=== PATIENT | male | born 1960 | race Caucasian/White ===

== ENCOUNTER → 2018-09-30 | Outpatient (REF) | payer OTHER ==
[2018-09-30 19:15] LABS: APPEARANCE, URINE HAZY (CLEAR); BACTERIA, URINE AUTO NEGATIVE (NEGATIVE); BILIRUBIN, URINE AUTO NEGATIVE (NEGATIVE); BLOOD, URINE BLOOD NEGATIVE (NEGATIVE); CALCIUM OXALATE CRYSTALS SMALL; COLOR, URINE YELLOW (YELLOW); GLUCOSE, URINE (UA) AUTO NEGATIVE (NEGATIVE); KETONE, URINE AUTO TRACE mg/dL (NEGATIVE); LEUKOCYTE ESTERASE, URINE AUTO NEGATIVE (NEGATIVE); MUCUS, URINE SMALL (NEGATIVE); NITRITE, URINE AUTO NEGATIVE (NEGATIVE); PROTEIN, URINE AUTO 1+ mg/dL (NEGATIVE); RBC, URINE AUTO 2 /HPF (0-3); SPECIFIC GRAVITY URINE AUTO 1.027 (1.002-1.035); SQUAMOUS EPITHELIAL CELL UR AU 0 /HPF (0-6); WBC, URINE AUTO 4 /HPF (0-3)
== END ==
LOC: M SMT 17:26
DX: L02.215 Cutaneous abscess of perineum (principal)

== ENCOUNTER → 2018-10-04 | Outpatient (CLI) | payer OTHER ==
[2018-10-04 18:11] LABS: PSA SCREENING 1.5 NG/ML (< 4.0)
== END ==
LOC: M RAD 14:41
DX: L02.215 Cutaneous abscess of perineum (principal); Z12.5 Encounter for screening for malignant neoplasm of prostate
CPT/HCPCS: 76870

== ENCOUNTER 2020-12-03 16:19 | Emergency (ER) | payer OTHER ==
[~2020-12-03] VITALS: Ht 182.9 cm; Wt 108.9 kg
[2020-12-03 16:20] VITALS: BP 180/90
--- OUTSIDE RECORDS SUMMARY | 2020-12-03 16:31 | CCD ---
Author Author [facility] Organization [facility] Address Unknown Phone Unavailable Support Name Relationship Address Phone Eron WILL Next Of Kin [address] [place] [address] [employer] Next Of Kin [address] [place] [address] UE Next Of Kin Unknown Unavailable SAM WILL Next Of Kin [address] [place], [place] [id number] Re-disclosure Warning The records that you are about to access may contain information from federally-assisted alcohol or drug abuse programs. If such information is present, then the following federally mandated warning applies: This information has been disclosed to you from records protected by federal confidentiality rules (42 CFR part 2). The federal rules prohibit you from making any further disclosure of this information unless further disclosure is expressly permitted by the written consent of the person to whom it pertains or as otherwise permitted by 42 CFR part 2. A general authorization for the release of medical or other information is NOT sufficient for this purpose. The Federal rules restrict any use of the information to criminally investigate or prosecute any alcohol or drug abuse patient.The records that you are about to access may contain highly sensitive health information, the redisclosure of which is protected by Article 27-F of the [facility] Public Health law. If you continue you may have access to information: Regarding HIV / AIDS; Provided by facilities licensed or operated by the [facility] Office of Mental Health; or Provided by the [facility] Office for People With Developmental Disabilities. If such information is present, then the following [facility] mandated warning applies: This information has been disclosed to you from confidential records which are protected by state law. State law prohibits you from making any further disclosure of this information without the specific written consent of the person to whom it pertains, or as otherwise permitted by law. Any unauthorized further disclosure in violation of state law may result in a fine or group home sentence or both. A general authorization for the release of medical or other information is NOT sufficient authorization for further disc losure. Family History Family Member Name Family Member Gender Family Member Status Date o f Status Description Data Source(s) Unknown Male Problem [facility] () Medications Medication Brand Name Start Date Product Form Dose Route Admi nistrative Instructions Pharmacy Instructions Status Indications Reaction Description Data Source(s) 500 mg 11/30/2020 12:00:00 AM EST tablet extended release 24 hr 360 TAKE TWO TABLETS BY MOUTH TWICE A DAY TAKE TWO TABLETS BY MOUTH TWICE A DAY SOLD: 12/01/2020 [facility] 20 mg 11/30/2020 12:00:00 AM EST tablet 90 TAKE ONE TABLET BY MOUTH EVERY DAY TAKE ONE TABLET BY MOUTH EVERY DAY SOLD: 12/01/2020 [facility] 50 mg 11/30/2020 12:00:00 AM EST tablet 90 TAKE ONE TABLET BY MOUTH EVERY DAY TAKE ONE TABLET BY MOUTH EVERY DAY SOLD: 12/01/2020 [facility] Hydrochlorothiazide 12.5 MG Oral Tablet HYDROCHLOROTHIAZIDE 11/30/2020 12:00:00 AM EST tablet 90 TAKE ONE TABLET BY MOUTH LORENZO RY DAY TAKE ONE TABLET BY MOUTH EVERY DAY SOLD: 12/01/2020 [facility] Hydrochlorothiazide 12.5 MG Oral Tablet HYDROCHLOROTHIAZIDE 07/16/2020 12:00:00 AM EDT tablet 30 TAKE ONE TABLET BY MOUTH LORENZO RY DAY TAKE ONE TABLET BY MOUTH EVERY DAY SOLD: 10/12/2020 [facility] 500 mg 07/16/2020 12:00:00 AM EDT tablet extended release 24 hr 120 TAKE TWO TABLETS BY MOUTH TWICE A DAY TAKE TWO TABLETS BY MOUTH TWICE A DAY SOLD: 10/12/2020 [facility] 500 mg 07/16/2020 12:00:00 AM EDT tablet extended release 24 hr 120 TAKE TWO TABLETS BY MOUTH TWICE A DAY TAKE TWO TABLETS BY MOUTH TWICE A DAY SOLD: 07/16/2020 [facility] 20 mg 07/16/2020 12:00:00 AM EDT tablet 30 TAKE ONE TABLET BY MOUTH EVERY DAY TAKE ONE TABLET BY MOUTH EVERY DAY SOLD: 10/12/2020 [facility] 50 mg 07/16/2020 12:00:00 AM EDT tablet 30 TAKE ONE TABLET BY MOUTH EVERY DAY TAKE ONE TABLET BY MOUTH EVERY DAY SOLD: 10/12/2020 [facility] 500 mg 07/16/2020 12:00:00 AM EDT tablet extended release 24 hr 120 TAKE TWO TABLETS BY MOUTH TWICE A DAY TAKE TWO TABLETS BY MOUTH TWICE A DAY SOLD: 09/14/2020 [facility] Hydrochlorothiazide 12.5 MG Oral Tablet HYDROCHLOROTHIAZIDE 07/16/2020 12:00:00 AM EDT tablet 30 TAKE ONE TABLET BY MOUTH TAKE ONE TABLET BY MOUTH EVERY DAY SOLD: 09/14/2020 [facility] 20 mg 07/16/2020 12:00:00 AM EDT tablet 30 TAKE ONE TABLET BY MOUTH EVERY DAY TAKE ONE TABLET BY MOUTH EVERY DAY SOLD: 07/16/2020 [facility] 50 mg 07/16/2020 12:00:00 AM EDT tablet 30 TAKE ONE TABLET BY MOUTH EVERY DAY TAKE ONE TABLET BY MOUTH EVERY DAY SOLD: 07/16/2020 [facility] Hydrochlorothiazide 12.5 MG Oral Tablet HYDROCHLOROTHIAZIDE 07/16/2020 12:00:00 AM EDT tablet 30 TAKE ONE TABLET BY MOUTH TAKE ONE TABLET BY MOUTH EVERY DAY SOLD: 07/16/2020 [facility] 50 mg 07/16/2020 12:00:00 AM EDT tablet 30 TAKE ONE TABLET BY MOUTH EVERY DAY TAKE ONE TABLET BY MOUTH EVERY DAY SOLD: 09/14/2020 [facility] 20 mg 07/16/2020 12:00:00 AM EDT tablet 30 TAKE ONE TABLET BY MOUTH EVERY DAY TAKE ONE TABLET BY MOUTH EVERY DAY SOLD: 09/14/2020 [facility] 500 mg 03/26/2020 12:00:00 AM EDT tablet extended release 24 hr 120 TAKE TWO TABLETS BY MOUTH TWICE A DAY TAKE TWO TABLETS BY MOUTH TWICE A DAY SOLD: 04/28/2020 [facility] 50 mg 03/26/2020 12:00:00 AM EDT tablet 30 TAKE ONE TABLET BY MOUTH EVERY DAY TAKE ONE TABLET BY MOUTH EVERY DAY SOLD: 05/28/2020 [facility] 50 mg 03/26/2020 12:00:00 AM EDT tablet 30 TAKE ONE TABLET BY MOUTH EVERY DAY TAKE ONE TABLET BY MOUTH EVERY DAY SOLD: 04/28/2020 [facility] 50 mg 03/26/2020 12:00:00 AM EDT tablet 30 TAKE ONE TABLET BY MOUTH EVERY DAY TAKE ONE TABLET BY MOUTH EVERY DAY SOLD: 03/30/2020 [facility] 500 mg 03/26/2020 12:00:00 AM EDT tablet extended release 24 hr 120 TAKE TWO TABLETS BY MOUTH TWICE A DAY TAKE TWO TABLETS BY MOUTH TWICE A DAY SOLD: 03/30/2020 [facility] 12.5 mg 03/26/2020 12:00:00 AM EDT tablet 30 TAKE ONE TABLET BY MOUTH EVERY DAY TAKE ONE TABLET BY MOUTH EVERY DAY SOLD: 04/28/2020 [facility] 12.5 mg 03/26/2020 12:00:00 AM EDT tablet 30 TAKE ONE TABLET BY MOUTH EVERY DAY TAKE ONE TABLET BY MOUTH EVERY DAY SOLD: 03/30/2020 [facility] 500 mg 03/26/2020 12:00:00 AM EDT tablet extended release 24 hr 120 TAKE TWO TABLETS BY MOUTH TWICE A DAY TAKE TWO TABLETS BY MOUTH TWICE A DAY SOLD: 05/28/2020 [facility] 12.5 mg 03/26/2020 12:00:00 AM EDT tablet 30 TAKE ONE TABLET BY MOUTH EVERY DAY TAKE ONE TABLET BY MOUTH EVERY DAY SOLD: 05/28/2020 [facility] 20 mg 03/26/2020 12:00:00 AM EDT tablet 30 TAKE ONE TABLET BY MOUTH EVERY DAY TAKE ONE TABLET BY MOUTH EVERY DAY SOLD: 04/28/2020 [facility] 20 mg 03/26/2020 12:00:00 AM EDT tablet 30 TAKE ONE TABLET BY MOUTH EVERY DAY TAKE ONE TABLET BY MOUTH EVERY DAY SOLD: 05/28/2020 [facility] 20 mg 03/26/2020 12:00:00 AM EDT tablet 30 TAKE ONE TABLET BY MOUTH EVERY DAY TAKE ONE TABLET BY MOUTH EVERY DAY SOLD: 03/30/2020 [facility] 50 mg 12/30/2019 12:00:00 AM EST tablet 30 TAKE ONE TABLET BY MOUTH EVERY DAY TAKE ONE TABLET BY MOUTH EVERY DAY SOLD: 03/01/2020 [facility] 20 mg 12/30/2019 12:00:00 AM EST tablet 30 TAKE ONE TABLET BY MOUTH EVERY DAY TAKE ONE TABLET BY MOUTH EVERY DAY SOLD: 01/03/2020 [facility] 12.5 mg 12/30/2019 12:00:00 AM EST tablet 30 TAKE ONE TABLET BY MOUTH EVERY DAY TAKE ONE TABLET BY MOUTH EVERY DAY SOLD: 03/01/2020 [facility] 500 mg 12/30/2019 12:00:00 AM EST tablet extended release 24 hr 120 TAKE TWO TABLETS BY MOUTH TWICE A DAY TAKE TWO TABLETS BY MOUTH TWICE A DAY SOLD: 03/01/2020 [facility] 50 mg 12/30/2019 12:00:00 AM EST tablet 30 TAKE ONE TABLET BY MOUTH EVERY DAY TAKE ONE TABLET BY MOUTH EVERY DAY SOLD: 02/01/2020 [facility] 500 mg 12/30/2019 12:00:00 AM EST tablet extended release 24 hr 120 TAKE TWO TABLETS BY MOUTH TWICE A DAY TAKE TWO TABLETS BY MOUTH TWICE A DAY SOLD: 02/01/2020 [facility] 50 mg 12/30/2019 12:00:00 AM EST tablet 30 TAKE ONE TABLET BY MOUTH EVERY DAY TAKE ONE TABLET BY MOUTH EVERY DAY SOLD: 01/03/2020 [facility] 20 mg 12/30/2019 12:00:00 AM EST tablet 30 TAKE ONE TABLET BY MOUTH EVERY DAY TAKE ONE TABLET BY MOUTH EVERY DAY SOLD: 03/01/2020 [facility] 12.5 mg 12/30/2019 12:00:00 AM EST tablet 30 TAKE ONE TABLET BY MOUTH EVERY DAY TAKE ONE TABLET BY MOUTH EVERY DAY SOLD: 01/03/2020 [facility] 500 mg 12/30/2019 12:00:00 AM EST tablet extended release 24 hr 120 TAKE TWO TABLETS BY MOUTH TWICE A DAY TAKE TWO TABLETS BY MOUTH TWICE A DAY SOLD: 01/03/2020 [facility] 20 mg 12/30/2019 12:00:00 AM EST tablet 30 TAKE ONE TABLET BY MOUTH EVERY DAY TAKE ONE TABLET BY MOUTH EVERY DAY SOLD: 02/01/2020 [facility] 12.5 mg 12/30/2019 12:00:00 AM EST tablet 30 TAKE ONE TABLET BY MOUTH EVERY DAY TAKE ONE TABLET BY MOUTH EVERY DAY SOLD: 02/01/2020 [facility] 500 mg 10/16/2019 12:00:00 AM EST tablet 3 TAKE ONE TABLET BY MOUTH EVERY DAY TAKE ONE TABLET BY MOUTH EVERY DAY SOLD: 10/16/2019 [facility] 500 mg 10/16/2019 12:00:00 AM EST tablet 3 TAKE ONE TABLET BY MOUTH EVERY DAY TAKE ONE TABLET BY MOUTH EVERY DAY SOLD: 10/19/2019 [facility] 12.5 mg 09/29/2019 12:00:00 AM EST tablet 30 TAKE ONE TABLET BY MOUTH EVERY DAY TAKE ONE TABLET BY MOUTH EVERY DAY SOLD: 12/05/2019 [facility] 12.5 mg 09/29/2019 12:00:00 AM EST tablet 30 TAKE ONE TABLET BY MOUTH EVERY DAY TAKE ONE TABLET BY MOUTH EVERY DAY SOLD: 10/31/2019 [facility] 20 mg 09/29/2019 12:00:00 AM EST tablet 30 TAKE ONE TABLET BY MOUTH EVERY DAY TAKE ONE TABLET BY MOUTH EVERY DAY SOLD: 10/31/2019 [facility] 50 mg 09/29/2019 12:00:00 AM EST tablet 30 TAKE ONE TABLET BY MOUTH EVERY DAY TAKE ONE TABLET BY MOUTH EVERY DAY SOLD: 12/05/2019 [facility] 50 mg 09/29/2019 12:00:00 AM EST tablet 30 TAKE ONE TABLET BY MOUTH EVERY DAY TAKE ONE TABLET BY MOUTH EVERY DAY SOLD: 10/31/2019 [facility] 20 mg 09/29/2019 12:00:00 AM EST tablet 30 TAKE ONE TABLET BY MOUTH EVERY DAY TAKE ONE TABLET BY MOUTH EVERY DAY SOLD: 12/05/2019 [facility] 500 mg 09/29/2019 12:00:00 AM EST tablet extended release 24 hr 120 TAKE TWO TABLETS BY MOUTH TWICE A DAY TAKE TWO TABLETS BY MOUTH TWICE A DAY SOLD: 10/31/2019 [facility] 500 mg 09/29/2019 12:00:00 AM EST tablet extended release 24 hr 120 TAKE TWO TABLETS BY MOUTH TWICE A DAY TAKE TWO TABLETS BY MOUTH TWICE A DAY SOLD: 12/05/2019 [facility] Insurance Providers Payer name Policy type / Coverage type Policy ID Covered republican ID Covered republican's relationship to wilkins Policy Wilkins Plan Information [facility] [id number] SP [id number] [facility] AMERICHOICE XIX -HMO [id number] 18 [id number] [facility] AMERICHOICE XIX -HMO [id number] 18 [id number] [facility] PLAN [facility] [id number] SP [id number] ANSI-Medicaid [id number] ANSI-Medicaid [id number] ANSI-Medicaid [id number] [facility] Communty Plan Medicaid [id number] Self [id number] [facility] COMMUNTY PLAN MC [id number] 18 [id number] [facility] U [id number] Self [id number] [facility] I [id number] Self [id number] [facility]) O [id number] S [id number] [facility] [id number] SP [id number] [facility] PLAN -O/P [id number] 1 [id number] SELF PAY UNAVAILABLE SP UNAVAILA BLE
[2020-12-03] MEDS ORDERED: HYDR12.55 (16:35)
[2020-12-03] MEDS ORDERED: PARO20TA3 (16:35)
[2020-12-03] MEDS ORDERED: METF-838 (16:35)
[2020-12-03] MEDS ORDERED: METO50TA7 (16:35)
--- NOTE | 2020-12-03 19:20 | REP ---
INDICATION: congestion. COMPARISON: None. TECHNIQUE: SINGLE PORTABLE AP VIEW OF THE CHEST WAS PERFORMED. FINDINGS: THERE IS NO ACUTE INFILTRATE OR PULMONARY EDEMA. LUNGS ARE CLEAR. HEART IS NOT SIGNIFICANTLY ENLARGED. MEDIASTINAL SILHOUETTE IS UNREMARKABLE. THE VISUALIZED OSSEOUS STRUCTURES ARE INTACT. IMPRESSION: NO ACUTE PULMONARY DISEASE. <Electronically signed by Ba Hinojosa > 12/03/20 [id number]
[2020-12-03 19:31] LABS: HEMATOCRIT 51.4 % (42.0-52.0); HEMOGLOBIN 18.3 g/dl (13.5-17.5); MEAN CORPUSCULAR HEMOGLOBIN 32.7 pg (27.0-33.0); MEAN CORPUSCULAR HGB CONC 35.6 g/dl (32.0-36.5); MEAN CORPUSCULAR VOLUME 91.9 fl (80.0-96.0); PLATELET COUNT, AUTOMATED 216 10^3/uL (150-450); RED BLOOD COUNT 5.59 10^6/uL (4.30-6.10)
[2020-12-03 19:32] LABS: WHITE BLOOD COUNT 12.7 10^3/uL (4.0-10.0)
[2020-12-03 19:57] LABS: ATYPICAL LYMPH 6 % (0-5); BASOPHILS 2 % (0-1); EOSINOPHILS 5 % (0-3); LYMPHOCYTES 36 % (16-44); MONOCYTES 2 % (0-5); NEUTROPHILS 49 % (28-66); PLATELET ESTIMATE NORMAL (NORMAL)
== END 2020-12-03 21:08 | disposition home or self-care (01) ==
LOC: M ED 16:19
DX: Z11.52 Encounter for screening for COVID-19 (principal); R05 Cough; I10 Essential (primary) hypertension; E11.9 Type 2 diabetes mellitus without complications; E78.5 Hyperlipidemia, unspecified; Z79.899 Other long term (current) drug therapy; Z79.84 Long term (current) use of oral hypoglycemic drugs; F17.210 Nicotine dependence, cigarettes, uncomplicated
CPT/HCPCS: 36415; 71045; 80047; 85025; 99283; U0003